=== PATIENT | female | born 1990 ===

== ENCOUNTER → 2021-11-28 | Outpatient (CLI) | payer OTHER ==
[2021-12-04 09:09] LABS: HPV 16 Negative (Negative); HPV 18 Negative (Negative); HPV OTHER HR TYPES Negative (Negative)
== END ==
LOC: LAB 14:50 → LAB SHORT 14:50
PROVIDERS: Physician Assistant Medical
DX: Z12.4 Encounter for screening for malignant neoplasm of cervix (principal)
CPT/HCPCS: 87624; G0145